=== PATIENT | female | born 1995 | race Caucasian/White ===

== ENCOUNTER 2016-05-09 19:57 | Emergency (ER) | payer MEDICAID ==
[~2016-05-09] VITALS: Ht 167.6 cm; Wt 90.7 kg
[2016-05-09 19:58] VITALS: BP 118/76; PULSE 85; RESP 16; TEMP 98.5; O2SAT 100
--- NOTE | 2016-05-09 19:58 | NUR ---
Patient to ER bed 8 to gown for evaluation. Side rails up. Report received from Sherry RACHEL.
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
--- NOTE | 2016-05-09 20:07 | NUR ---
ERIN Caruso CHANGE CONTROL MANAGER at bedside examining patient.
[2016-05-09] MEDS ORDERED: KETOROLAC TROMETHAMINE 60 MG/2 ML VIAL IM ONE (20:15)
[2016-05-09 21:15] VITALS: BP 112/76; PULSE 78; RESP 16; TEMP 98.5; O2SAT 100
--- NOTE | 2016-05-09 21:17 | NUR ---
Patient given written and verbal discharge instructions and verbalizes understanding. ER MD discussed with patient the results and treatment provided. Given copies of tests performed in ER. Patient in stable condition. ID arm band removed. Rx of motrin ,flexeril,bacitracin given. Patient educated on pain management and to follow up with PMD. Pain Scale 0/10. Opportunity for questions provided and answered.
== END 2016-05-09 21:15 | disposition home or self-care (01) ==
LOC: SED 19:57
DX: S16.1XXA Strain of muscle, fascia and tendon at neck level, initial encounter (principal); S20.311A Abrasion of right front wall of thorax, initial encounter; F12.10 Cannabis abuse, uncomplicated; F17.210 Nicotine dependence, cigarettes, uncomplicated; V89.2XXA Person injured in unspecified motor-vehicle accident, traffic, initial encounter; Y93.89 Activity, other specified; Y92.89 Other specified places as the place of occurrence of the external cause; Y99.8 Other external cause status
CPT/HCPCS: 71010; 72125; 81025; 96372; 99284; J1885

== ENCOUNTER 2017-04-22 18:25 | Emergency (ER) | payer SELFPAY ==
[~2017-04-22] VITALS: Ht 170.2 cm; Wt 77.1 kg
[2017-04-22 18:47] VITALS: BP_SYST 132
[2017-04-22] MEDS ORDERED: NACL 0.9% 1,000 ML IV SCH (18:58)
[2017-04-22 19:19] LABS: BARBITURATE, URINE NEGATIVE (NEG <=200); BENZODIAZEPINE, URINE NEGATIVE (NEG <=150); CANNABINOID, URINE POSITIVE (NEG <=50); COCAINE, URINE POSITIVE (NEG <=150); METHAMPHETAMINES SCREEN,URINE NEGATIVE (NEG <=500); OPIATE, URINE NEGATIVE (NEG <=100); PHENCYCLIDINE SCREEN,URINE NEGATIVE (NEG <=25); UR TRICYCLIC ANTIDEPRESSANTS NEGATIVE (NEG <=300); URINE AMPHETAMINE NEGATIVE (NEG <=500); URINE METHADONE NEGATIVE (NEG <=200); URINE OXYCODONE SCREEN NEGATIVE (NEG <=100); URINE PROPOXYPHENE SCREEN NEGATIVE (NEG <=300)
[2017-04-22 19:43] LABS: BASOPHILS % (AUTO) 0.2 % (0.0-2.0); EOSINOPHILS % (AUTO) 0.2 % (0.0-4.0); HEMATOCRIT 38.2 % (36-48); HEMOGLOBIN 12.2 g/dL (12.0-16.0); LYMPHOCYTES % (AUTO) 13.2 % (20.5-51.5); MEAN CORPUSCULAR HEMOGLOBIN 26 pg (27-31); MEAN CORPUSCULAR HGB CONC 32 % (32-36); MEAN CORPUSCULAR VOLUME 81 fL (79.0-98.0); MONOCYTES # (AUTO) 0.8 K/uL (0.0-1.0); MONOCYTES % (AUTO) 4.9 % (1.7-9.3); NEUTROPHILS # (AUTO) 12.5 K/uL (1.8-7.7); NEUTROPHILS % (AUTO) 81.5 % (40.0-70.0); PLATELET COUNT (AUTO) 316 K/uL (130-430); RED BLOOD CELL COUNT(AUTO) 4.74 MIL/uL (4.2-6.2); RED CELL DISTRIBUTION WIDTH 14.9 % (9.0-15.0); WHITE BLOOD COUNT (AUTO) 15.3 K/uL (4.5-11.0)
[2017-04-22 19:48] LABS: ANION GAP 7 (5-15); CALCIUM 9.3 mg/dL (8.4-11.0); CHLORIDE 102 mmol/L (98-107); CREATININE 0.68 mg/dL (0.55-1.30); GLUCOSE 87 mg/dL (70-99); POTASSIUM 3.4 mmol/L (3.5-5.1); SODIUM SERUM 133 mmol/L (136-145); UREA NITROGEN, BLOOD 13 mg/dL (8-21)
[2017-04-22 19:49] LABS: GFR AFRICAN AMERICAN 142 mL/min (>90)
[2017-04-22 19:53] LABS: ALANINE AMINOTRANSFERASE 18 U/L (12-78); ALBUMIN 4.3 g/dL (3.4-4.8); ASPARTATE AMINOTRANSFERASE 15 U/L (10-37); TOTAL BILIRUBIN 0.4 mg/dL (0.0-1.0)
[2017-04-22 19:55] LABS: ALCOHOL, BLOOD < 3 mg/dL (<10)
[2017-04-22 19:57] LABS: ACETAMINOPHEN < 1 ug/mL (1-30)
[2017-04-22 20:10] VITALS: BP_SYST 112
== END 2017-04-22 20:10 | disposition home or self-care (01) ==
LOC: SED 18:25
DX: R55 Syncope and collapse (principal); F14.10 Cocaine abuse, uncomplicated; F17.210 Nicotine dependence, cigarettes, uncomplicated; R03.0 Elevated blood-pressure reading, without diagnosis of hypertension
CPT/HCPCS: 36415; 80053; 80307; 85025; 93005; 96360; 99285; G0480; G0482; J7030

== ENCOUNTER 2019-07-27 08:40 | Emergency (ER) | payer SELFPAY ==
[~2019-07-27] VITALS: Ht 170.2 cm; Wt 77.1 kg
[2019-07-27 08:46] VITALS: BP_SYST 138
[2019-07-27] MEDS ORDERED: PREDNISONE 20 MG TABLET PO ONE (09:00)
[2019-07-27 09:27] VITALS: BP_SYST 138
== END 2019-07-27 09:20 | disposition home or self-care (01) ==
LOC: SED 08:40
DX: J03.80 Acute tonsillitis due to other specified organisms (principal)
CPT/HCPCS: 86403; 87081; 99283; J7512; 36415

== ENCOUNTER 2019-08-03 19:52 | Emergency (ER) | payer SELFPAY ==
[~2019-08-03] VITALS: Ht 165.1 cm; Wt 72.6 kg
[2019-08-03 20:00] VITALS: BP_SYST 140
[2019-08-03] MEDS ORDERED: PENICILLIN G BENZATHINE 1.2 MMU/2 ML SYR IM ONE (21:00)
[2019-08-03] MEDS ORDERED: PENICILLIN V POTASSIUM 250 MG TABLET PO ONE (21:00)
[2019-08-03 21:45] VITALS: BP_SYST 133
[2019-08-04] MEDS ORDERED: PENICILLIN V POTASSIUM 250 MG TABLET PO SCH
== END 2019-08-03 21:45 | disposition home or self-care (01) ==
LOC: SED 19:52
DX: R07.0 Pain in throat (principal); Z71.6 Tobacco abuse counseling
CPT/HCPCS: 96372; 99283; J0561

== ENCOUNTER 2019-09-19 17:29 | Emergency (ER) | payer SELFPAY ==
[~2019-09-19] VITALS: Ht 170.2 cm; Wt 72.6 kg
[2019-09-19 17:29] VITALS: BP_SYST 112
--- NOTE | 2019-09-19 17:29 | NUR ---
Patient to ER surge tent for evaluation.
--- NOTE | 2019-09-19 17:30 | NUR ---
Patient came from home for evaluation of COVID-19 symptoms. A family member that lives with them tested positive yesterday.
--- NOTE | 2019-09-19 17:53 | NUR ---
ER in tent examining patient.
--- NOTE | 2019-09-19 19:07 | NUR ---
Report given to VIRGINIE Zamora for continuation of care.
[2019-09-19 19:32] VITALS: BP_SYST 112
--- NOTE | 2019-09-19 19:33 | NUR ---
Patient given written and verbal discharge instructions and verbalizes understanding. ER MD discussed with patient the results and treatment provided. Patient in stable condition. ID arm band removed. Rx of Dexamethasone,Zinc sulfate, Hydroxychloroquine and Azithromycin given. Patient educated on pain management and to follow up with PMD. Pain Scale 0/10 . Opportunity for questions provided and answered. Medication side effect fact sheet provided.
== END 2019-09-19 19:32 | disposition home or self-care (01) ==
LOC: SED 17:29
DX: R50.9 Fever, unspecified (principal); R43.0 Anosmia; R43.2 Parageusia; Z20.828 Contact with and (suspected) exposure to other viral communicable diseases
CPT/HCPCS: 71045; 99283

== ENCOUNTER 2022-05-11 13:08 | Emergency (ER) | payer MEDICAID ==
[~2022-05-11] VITALS: Ht 170.2 cm; Wt 81.6 kg
[2022-05-11 13:41] VITALS: BP_SYST 133
[2022-05-11 15:17] LABS: BASOPHILS % (AUTO) 0.3 % (0.0-2.0); EOSINOPHILS % (AUTO) 0.2 % (0.0-4.0); HEMATOCRIT 38.1 % (36-48); HEMOGLOBIN 12.3 g/dL (12.0-16.0); LYMPHOCYTES % (AUTO) 14.8 % (20.5-51.5); MEAN CORPUSCULAR HEMOGLOBIN 26 pg (27-31); MEAN CORPUSCULAR HGB CONC 32 % (32-36); MEAN CORPUSCULAR VOLUME 81 fL (79.0-98.0); MONOCYTES # (AUTO) 1.3 K/uL (0.0-1.0); NEUTROPHILS # (AUTO) 9.9 K/uL (1.8-7.7); NEUTROPHILS % (AUTO) 74.7 % (40.0-70.0); PLATELET COUNT (AUTO) 298 K/uL (130-430); RED BLOOD CELL COUNT(AUTO) 4.71 MIL/uL (4.2-6.2); RED CELL DISTRIBUTION WIDTH 15.2 % (9.0-15.0); WHITE BLOOD COUNT (AUTO) 13.3 K/uL (4.8-10.8)
[2022-05-11 15:32] LABS: ANION GAP 13 (5-15); CALCIUM 9.4 mg/dL (8.4-11.0); CHLORIDE 97 mmol/L (98-107); CREATININE 0.77 mg/dL (0.55-1.30); GFR AFRICAN AMERICAN 117 mL/min (>90); GLUCOSE 83 mg/dL (70-99); UREA NITROGEN, BLOOD 13 mg/dL (8-21)
[2022-05-11 15:45] LABS: ALANINE AMINOTRANSFERASE 17 U/L (12-78); ALBUMIN 3.8 g/dL (3.4-4.8); AMYLASE 40 U/L (0-100); ASPARTATE AMINOTRANSFERASE 12 U/L (10-37); C-REACTIVE PROTEIN QUANT 13.4 mg/dL (0-0.5); LIPASE 53 U/L (73-393); TOTAL BILIRUBIN 0.4 mg/dL (0.0-1.0)
[2022-05-11 15:50] LABS: BILIRUBIN,URINE 1+ (NEGATIVE); BLOOD, URINE 3+ (NEGATIVE); COLOR,URINE YELLOW (YELLOW); GLUCOSE,URINE NEGATIVE (NEGATIVE); KETONES,URINE 3+ (NEGATIVE); LEUKOCYTE ESTERASE ,URINE NEGATIVE (NEGATIVE); NITRITE, URINE NEGATIVE (NEGATIVE); PH,URINE 5.5 (5.0-8.0); PROTEIN URINE 2+ (NEGATIVE); UROBILINOGEN,URINE 0.2 (0.2-1.0)
[2022-05-11 16:02] LABS: CLARITY/URINE SLIGHTLY HAZY (CLEAR)
[2022-05-11 16:25] LABS: BACTERIA,URINE MODERATE /HPF (None Seen); MUCUS,URINE 3+ /LPF (None Seen); WBC,URINE 0-3 /HPF (0-3)
[2022-05-11 16:27] LABS: ACETONE, SERUM NEGATIVE (NEGATIVE)
[2022-05-11] MEDS ORDERED: cefTRIAXone 1 GM in LIDOCAINE 1%, 20 ML MDV 2.1 ML IM ONE (16:30)
[2022-05-11] MEDS ORDERED: NITR-85 PO (16:32)
[2022-05-11] MEDS ORDERED: IBUP-1971 PO (16:32)
--- NOTE | 2022-05-11 18:18 | NUR ---
ER at bedside examining patient.
--- NOTE | 2022-05-11 18:19 | NUR ---
Pt C/O upper abdominal pain. Patient given written and verbal discharge instructions and verbalizes understanding. ER MD discussed with patient the results and treatment provided. Patient in stable condition. ID arm band removed. Rx of given. Patient educated on pain management and to follow up with PMD. Pain Scale 1. Opportunity for questions provided and answered. Medication side effect fact sheet provided.
== END 2022-05-11 17:30 | disposition home or self-care (01) ==
LOC: SED 13:08
DX: N12 Tubulo-interstitial nephritis, not specified as acute or chronic (principal); R10.12 Left upper quadrant pain; R11.2 Nausea with vomiting, unspecified; R07.89 Other chest pain; Z79.899 Other long term (current) drug therapy
CPT/HCPCS: 99285; 74176; 71045; 80053; 81000; 82009; 82150; 84703; 83690; 85025; 86140; 87086; 84484; 36415; 76376; 96372; 83605; J0696; J2001

== ENCOUNTER 2023-03-29 16:45 | Emergency (ER) | payer MEDICAID ==
[~2023-03-29] VITALS: Ht 170.2 cm; Wt 93.0 kg
[~2023-03-29 16:45] MED LIST: IBUP-1971 PO; NITR-85 PO
[2023-03-29 16:58] VITALS: BP_SYST 129; PULSE 79; RESP 19; TEMP 98; O2SAT 97
[2023-03-29] MEDS ORDERED: ACET325T53 PO (19:20)
[2023-03-29 19:39] VITALS: BP_SYST 124; PULSE 80; RESP 18; TEMP 97.9; O2SAT 97
== END 2023-03-29 19:31 | disposition home or self-care (01) ==
LOC: SED 16:45
DX: M54.12 Radiculopathy, cervical region (principal); M25.512 Pain in left shoulder; Z79.899 Other long term (current) drug therapy
CPT/HCPCS: 73030; 99283